=== PATIENT | female | born 1950 | race Caucasian/White ===

== ENCOUNTER 2017-01-23 12:00 | Outpatient (CLI) | payer BC ==
[2017-01-23] MEDS ORDERED: ROCURONIUM 100 MG/10 ML VIAL ONE (13:06)
[2017-01-23] MEDS ORDERED: SUCCINYLCHOLINE CHLORIDE 200 MG/10 ML VIAL ONE (13:06)
[2017-01-23] MEDS ORDERED: MIDAZOLAM 2 MG/2 ML VIAL IVP ONE (13:22)
--- NOTE | 2017-01-23 13:24 | PDANEPAE ---
ANE History of Present Illness 66 year okld with back and neck pain ANE Past Medical History - Cardiovascular History Hx Hypertension: Yes Hx Arrhythmias: Yes Hx Chest Pain: No Hx Coronary Artery / Peripheral Vascular Disease: Yes Hx CHF / Valvular Disease: No Hx Palpitations: Yes Cardiovascular History Comment: 'irregular heartbeat with PVCs' - Pulmonary History Hx COPD: No Hx Asthma/Reactive Airway Disease: No Hx Recent Upper Respiratory Infection: No Hx Oxygen in Use at Home: Yes O2 in Use at Home (L/minute): 3L Hx Sleep Apnea: Yes Sleep Apnea Screening Result - Last Documented: Positive Pulmonary History Comment: Too claustrophbic for CPAP mask. Pt uses nasal canula at night. - Neurologic History Hx Cerebrovascular Accident: No Hx Seizures: No Hx Dementia: No - Endocrine History Hx Diabetes: No - Renal History Hx Renal Disorders: No - Liver History Hx Hepatic Disorders: No - Neurological & Psychiatric Hx Hx Neurological and Psychiatric Disorders: No - Cancer History Hx Cancer: No - Congenital Disorder History Hx Congenital Disorders: Yes Congenital History Comment: Spinal Issues - GI History Hx Gastrointestinal Disorders: Yes Gastrointestinal History Comment: GERD Hiatal Hernia - Other Health History Other Health History: Easily Bruises - Chronic Pain History Chronic Pain: No - Surgical History Prior Surgeries: tonsillectomy, C-sections 3, Hysterectomy, meniscus Surgery,. tubal ligation reversal ANE Review of Systems Review of systems is: negative Review of Systems: - Exercise capacity METS (RN): 4 METS ANE Patient History - Allergies Allergies/Adverse Reactions: No Allergies [NKA] Allergy (Verified 01/21/17 17:39) - Home Medications Home Medications: LISINOPRIL 10 mg PO DAILY 11/20/09 [Last Taken Unknown] SIMVASTATIN 20 mg PO DAILY 11/20/09 [Last Taken Unknown] Aspirin 81mg (*) 81 mg PO DAILY 01/21/17 [Last Taken Unknown] HCTZ (*) 12.5 mg PO DAILY 01/21/17 [Last Taken Unknown] Herbals/Supplements -Info Only PO DAILY 01/21/17 [Last Taken Unknown] Lamotrigine 100 mg PO DAILY 01/21/17 [Last Taken Unknown] Lunesta 3 mg PO DAILY 01/21/17 [Last Taken Unknown] Luvox 50 MG (*) 50 mg PO DAILY 01/21/17 [Last Taken Unknown] Metoprolol Tartrate 25 mg PO DAILY 01/21/17 [Last Taken Unknown] Multivitamin 1 tab PO DAILY 01/21/17 [Last Taken Unknown] Probiotic PO DAILY 01/21/17 [Last Taken Unknown] - Smoking Hx Smoking Status: Never smoked - Family Anes Hx Family Hx Anesthesia Complications: no ANE Labs/Vital Signs - Vital Signs Blood Pressure: 135/98 Heart Rate: 58 Respiratory Rate: 16 O2 Sat (%): 98 Height: 167.64 cm Weight: 81.647 kg ANE Physical Exam - Airway Neck exam: FROM Mallampati Score: Class 1 Mouth exam: normal dental/mouth exam - Pulmonary Pulmonary: no respiratory distress - Cardiovascular Cardiovascular: regular rate and rhythym - ASA Status ASA Status: II ANE Anesthesia Plan Anesthesia Plan: GA w LMA
[2017-01-23] MEDS ORDERED: PROPOFOL 200 MG/20 ML VIAL ONE (13:33)
[2017-01-23] MEDS ORDERED: fentaNYL 100 MCG/2 ML INJ ONE (13:44)
[2017-01-23] MEDS ORDERED: NALOXONE HCL 0.4 MG/ML INJ IVP PRN (15:17)
[2017-01-23] MEDS ORDERED: PROMETHAZINE HCL 25 MG/ML INJ IVP PRN (15:17)
[2017-01-23] MEDS ORDERED: ONDANSETRON 4 MG/2 ML VIAL IVP PRN (15:17)
[2017-01-23] MEDS ORDERED: DEXAMETHASONE 4 MG/ML VIAL IVP PRN (15:17)
[2017-01-23] MEDS ORDERED: fentaNYL 100 MCG/2 ML INJ IVP PRN (15:17)
--- NOTE | 2017-01-23 15:17 | POSTANESTH ---
Post Anesthetic Evaluation Cardiovascular Status: Normal, Stable Respiratory Status: Normal, Stable Level of Consciousness/Mental Status: Can Participate in Eval, Alert and Oriented Pain Control: Adequate, Prn Tx Ordered Nausea/Vomiting Control: Adequate, Prn Tx Ordered Complications Possibly Related to Anesthesia: None Noted
[2017-01-23 15:35] VITALS: TEMP 97.3
[2017-01-23 15:45] VITALS: RESP 14
[2017-01-23 16:08] VITALS: BP 105/67; PULSE 71; O2SAT 93
[2017-01-23] MEDS ORDERED: RANITIDINE 50 MG/2 ML VIAL ONE (17:00)
[2017-01-23] MEDS ORDERED: ONDANSETRON 4 MG/2 ML VIAL ONE (17:00)
[2017-01-23] MEDS ORDERED: LIDOCAINE 2% JELLY 5 ML TUBE ONE (17:00)
[2017-01-23] MEDS ORDERED: LIDOCAINE 2% 2 ML INJ ONE (17:00)
== END 2017-01-23 16:38 | disposition home or self-care (01) ==
LOC: FIMAGING 12:00
DX: M54.16 Radiculopathy, lumbar region (principal); M50.30 Other cervical disc degeneration, unspecified cervical region
CPT/HCPCS: J0330; J2405; J2704; J2780; J3010

== ENCOUNTER → 2017-01-23 | Outpatient (CLI) | payer BC | LOC: FIMAGING 11:59 | PROC: BR30ZZZ Magnetic Resonance Imaging (MRI) of Cervical Spine (ICD-10-PCS; principal; 2017-01-23) | PROC: BR39ZZZ Magnetic Resonance Imaging (MRI) of Lumbar Spine (ICD-10-PCS; principal; 2017-01-23) | DX: M54.16 Radiculopathy, lumbar region (principal); M43.16 Spondylolisthesis, lumbar region; M48.061 Spinal stenosis, lumbar region without neurogenic claudication; M54.2 Cervicalgia; M54.30 Sciatica, unspecified side; F40.240 Claustrophobia ==

== ENCOUNTER 2017-08-15 05:49 | Inpatient (IN) | payer BC ==
[2017-08-15] MEDS ORDERED: ACETAMINOPHEN 500 MG TAB PO ONE (06:11)
[2017-08-15] MEDS ORDERED: GABAPENTIN 300 MG CAP PO ONE (06:11)
[2017-08-15] MEDS ORDERED: LR 1,000 ML IV ONE (06:11)
[2017-08-15] MEDS ORDERED: morphINE PF 0.2 MG in SYRINGE INTRATHECAL 1 SYR IT ONE (06:11)
[2017-08-15] MEDS ORDERED: LIDOCAINE 1% 2 ML INJ ID PRN (06:11)
[2017-08-15] MEDS ORDERED: ceFAZolin 2 GM/DEXTROSE 100 ML IV ONE (06:11)
--- NOTE | 2017-08-15 06:25 | PDHPUP ---
History & Physical Update H&P update statement: This history and physical update is based on an assessment of the patient which was completed after admission or registration (within 24 hours), but prior to the surgery/procedure. H&P update: H&P reviewed & patient examined, no change in patient's condition since H&P completed (Consents siged and site marked. All questions answered. )
[2017-08-15] MEDS ORDERED: CHLORHEXIDINE GLUC HIBICLENS 118 ML BTL TP ONE (06:54)
[2017-08-15] MEDS ORDERED: THROMBIN (BOVINE) 20,000 UNIT VIAL TP ONE (06:54)
[2017-08-15] MEDS ORDERED: BUPIVACAINE 0.25% 30 ML SDV ONE (06:55)
[2017-08-15] MEDS ORDERED: CITRATE DEXTROSE SOLN 500 ML BAG ONE (06:55)
[2017-08-15] MEDS ORDERED: EPINEPHrine 1 MG/ML INJ ONE (06:55)
[2017-08-15] MEDS ORDERED: BACITRACIN 50,000 UNITS/10 ML SYR IRR ONE (06:55)
--- NOTE | 2017-08-15 07:28 | PDANEPAE ---
ANE Past Medical History - Cardiovascular History Hx Hypertension: Yes Hx Arrhythmias: Yes Hx Chest Pain: No Hx Coronary Artery / Peripheral Vascular Disease: Yes Hx CHF / Valvular Disease: No Hx Palpitations: Yes Cardiovascular History Comment: INTERMITTEN PEDAL EDEMA. PVC'S - Pulmonary History Hx COPD: No Hx Asthma/Reactive Airway Disease: No Hx Recent Upper Respiratory Infection: No Hx Oxygen in Use at Home: Yes O2 in Use at Home (L/minute): 3 Hx Sleep Apnea: Yes Sleep Apnea Screening Result - Last Documented: Positive Pulmonary History Comment: ROSALIA DX . Too claustrophbic for CPAP mask. Pt uses nasal canula at night. - Neurologic History Hx Cerebrovascular Accident: No Hx Seizures: No Hx Dementia: No - Endocrine History Hx Diabetes: No - Renal History Hx Renal Disorders: Yes Renal History Comment: FREQUENT UTI'S - Liver History Hx Hepatic Disorders: No - Neurological & Psychiatric Hx Hx Neurological and Psychiatric Disorders: Yes Neurological / Psychiatric History Comment: PTSD/GOING THROUGH A DIVORCE. 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 EPIDURALS. ARTHRITIS RACHEL FEET. CHRONIC EAR INFECTIONS. Easily Bruises. SLIGHT LT FOOT DROP. RACHEL NEUROPATHY - Chronic Pain History Chronic Pain: Yes (NUMBNESS LT FOOT WITH SOME DROP) - Surgical History Prior Surgeries: HYSTERECTOMY. tonsillectomy,. TUBAL LIGATION REVERSAL. TUBAL LIGATION. RT KNEE SCOPE. APPENDECTOMY. tubal ligation reversal ANE Review of Systems Review of Systems: - Exercise capacity METS (RN): 4 METS ANE Patient History - Allergies Allergies/Adverse Reactions: No Allergies [NKA] Allergy (Verified 08/15/17 07:09) - Home Medications Home Medications: Lisinopril [Zestril 10 mg (*)] 10 mg PO DAILY 11/20/09 [Last Taken 08/14/17 06: 00] Simvastatin [Zocor] 20 mg PO HS 11/20/09 [Last Taken 08/14/17 21:00] Aspirin [Aspirin 81mg (*)] 81 mg PO HS 01/21/17 [Last Taken 08/08/17] Eszopiclone [Lunesta] 3 mg PO HS 01/21/17 [Last Taken 08/13/17] Herbals/Supplements -Info Only 1 ea PO DAILY 01/21/17 [Last Taken 08/08/17] Hydrochlorothiazide [HCTZ (*)] 12.5 mg PO DAILY 01/21/17 [Last Taken 08/14/17 06 :00] Metoprolol Succinate Xr [Toprol Xl 25 mg (*)] 25 mg PO DAILY 01/21/17 [Last Taken 08/15/17 05:00] Multivitamins [Multivitamin (*)] 1 each PO DAILY 01/21/17 [Last Taken 08/08/17] ALPRAZolam [Xanax 1 MG (*)] 1 mg PO DAILY PRN 07/19/17 [Last Taken 08/14/17 23: 00] Ascorbic Acid [Vitamin C 500 mg (*)] 500 mg PO DAILY 07/19/17 [Last Taken ] [place]-3 Fatty Acids [Fish Oil 1000 mg (*)] 1,000 mg PO DAILY 07/19/17 [Last Taken 08/08/17] Omeprazole 40 mg PO DAILY 07/19/17 [Last Taken 08/14/17 05:00] Sertraline HCl [Zoloft 100mg (*)] 200 mg PO DAILY 07/19/17 [Last Taken 08/15/17 05:00] - NPO status NPO Since - Liquids (Date): 08/15/17 NPO Since - Liquids (Time): 05:00 NPO Since - Solids (Date): 08/14/17 NPO Since - Solids (Time): 22:00 - Smoking Hx Smoking Status: Never smoked - Family Anes Hx Family Hx Anesthesia Complications: no ANE Labs/Vital Signs - Vital Signs Blood Pressure: 125/82 Heart Rate: 67 Respiratory Rate: 18 O2 Sat (%): 96 Height: 167.64 cm Weight: 83.461 kg ANE Physical Exam - Airway Neck exam: FROM Mallampati Score: Class 3 Mouth exam: normal dental/mouth exam, small mouth opening - Pulmonary Pulmonary: no respiratory distress - Cardiovascular Cardiovascular: regular rate and rhythym - ASA Status ASA Status: III ANE Anesthesia Plan Anesthesia Plan: general endotracheal anesthesia
[2017-08-15] MEDS ORDERED: PROPOFOL/EMULSION 500 MG/50 ML BOTTLE IV ONE (07:36)
[2017-08-15] MEDS ORDERED: MIDAZOLAM 2 MG/2 ML VIAL ONE ×2 (07:36→11:32)
[2017-08-15] MEDS ORDERED: DEXAMETHASONE 4 MG/ML VIAL ONE ×2 (07:39)
[2017-08-15] MEDS ORDERED: LACTULOSE 20 GM/30 ML UDCUP PO PRN (10:18)
[2017-08-15] MEDS ORDERED: diphenhydrAMINE 25 MG CAP PO PRN (10:18)
[2017-08-15] MEDS ORDERED: ONDANSETRON DISINTEGRATING 4 MG TAB PO PRN (10:18)
[2017-08-15] MEDS ORDERED: ONDANSETRON 4 MG/2 ML VIAL IVP PRN ×2 (10:18→10:25)
[2017-08-15] MEDS ORDERED: BISACODYL 10 MG SUPP PR PRN (10:18)
[2017-08-15] MEDS ORDERED: MAGNESIUM HYDROXIDE 30 ML UDCUP PO PRN (10:18)
[2017-08-15] MEDS ORDERED: NALOXONE HCL 0.4 MG/ML INJ IVP PRN ×2 (10:25)
[2017-08-15] MEDS ORDERED: ALBUTEROL 3 ML DEYVIAL IH PRN (10:25)
--- NOTE | 2017-08-15 10:27 | POSTANESTH ---
Post Anesthetic Evaluation Cardiovascular Status: Similar to Pre-Op Cond Respiratory Status: Similar to Pre-op Cond. Level of Consciousness/Mental Status: Mildly Sleepy, Arousable Pain Control: Adequate, Prn Tx Ordered Nausea/Vomiting Control: Adequate, Prn Tx Ordered Complications Possibly Related to Anesthesia: None Noted
[2017-08-15] MEDS ORDERED: fentaNYL 100 MCG/2 ML INJ ONE (10:39)
[2017-08-15] MEDS: fentaNYL 100 MCG/2 ML INJ IVP PRN ×2 (10:40→11:20)
--- NOTE | 2017-08-15 10:54 | POSTOPPROG ---
Post Op Note Date of Operation: 08/15/17 Surgeon: Atif Quintanilla City Letter Carrier: CHARLIE Trujillo PAC Anesthesia: GET(General Endotracheal) Pre-op Diagnosis: lumbar stenosis Post-op Diagnosis: lumbar stenosis Indication: lumbar stenosis Procedure: L4/5 laminectomy,TLIF& PSF Inf/Abcess present in the surg proc area at time of surgery?: No Depth: Superfical (Skin SQ) EBL: 150cc Drains: Donald BILL Addendum - Addendum .: S:low back pain O: NAD A&Ox3 MAEX4, 5/5 and equal in BUE AND BLE. A/P L4/5 laminectomy,TLIF& PSF -optimize pain management -PT/OT -Post op xrays pending -JPx1 -DVT prophx:TEDs, SCDs, lovenox POD1 -Please notify NS with any change in neuro/motor exam
--- NOTE | 2017-08-15 11:32 | GOP ---
[f rep st] OPERATIVE REPORT DATE OF OPERATION: 08/15/2017 SURGEON: Atif Quintanilla MD BOARDING HOUSE MANAGER: Elif Trujillo P.A.-C. ANESTHESIA: General. PREOPERATIVE DIAGNOSIS: 1. L4-5 grade 1 spondylolisthesis with severe spinal stenosis. 2. Progressive neurological deficit. 3. Treatment refractory to nonoperative intervention. POSTOPERATIVE DIAGNOSIS: 1. L4-5 grade 1 spondylolisthesis with severe spinal stenosis. 2. Progressive neurological deficit. 3. Treatment refractory to nonoperative intervention. PROCEDURE PERFORMED: 1. Posterior arthrodesis with approach to L4-L5. 2. Posterolateral fusion with bilateral pedicle screw placement, L4 and L5 from the [employer] 4.75 system. 3. Decompressive laminectomy L4-L5 with left-sided L4-L5 transforaminal lumbar interbody fusion using a 7 x 23 mm Titanium PEEK elevate cage filled with morselized autograft and allograft. 4. Posterolateral fusion on the right between L4-5 with morselized autograft and allograft. 5. Use of intraoperative 3D Stealth Navigation. 6. Use of intraoperative fluoroscopy, less than 1-hour physician time. 7. Use of neuromonitoring. 8. Use of the operating microscope. 9. Injection of preservative-free intrathecal narcotics. FINDINGS: per imaging SPECIMENS: None. ESTIMATED BLOOD LOSS: 100 mL. INDICATIONS: The patient is a 66-year-old woman who has been followed in my clinic for a long time for lower extremity radiculopathy and back pain. She developed progressive neurological deficit including saddle anesthesia. After discussion of risks, benefits, and alternatives, after failing nonoperative intervention, we decided to proceed with the surgery as described above. DESCRIPTION OF PROCEDURE: The patient was brought to the operating theater and underwent general endotracheal anesthesia without complications. She had Venodynes, GIANCARLO hose, and the appropriate lines placed by Anesthesia. She was flipped prone onto the Donald table and all bony processes inspected and padded. The lower lumbar region was prepped and draped in usual sterile surgical fashion. A time-out was completed per protocol and the patient received antibiotics within 1 hour of incision. Using lateral fluoroscopy and a spinal needle, we picked our entry point to the L4-L5 level. This was marked in the midline, and the incision infiltrated with Marcaine with epinephrine. The incision was taken down with the scalp blade and using the monopolar, taken down the midline through the lumbodorsal fascia. A subperiosteal dissection was carried out to the transverse processes of L4 and L5. Care was taken to preserve the bilateral L3-4 facet joint. Deep retractors were placed to maintain our exposure. We confirmed our level using lateral fluoroscopy. We attached the 3D Stealth navigation clamp to the spinous process of L4 and completed a 3D Stealth navigation spin. Using 3D Stealth navigation we placed the commuter pilot holes for the bilateral pedicle screws at L4 and L5. All holes were manually palpated with no evidence of cortical breaches. We then tapped and placed 6.5 x 50 mm screws bilaterally in L4 and 6.5 x 45 mm screws bilaterally at L5 [employer] 4.75 system. Another 3D navigation spin demonstrated good placement of the hardware. At this point the microscope was brought into the field to assist with microscopic dissection and to maintain illumination and magnification. Using a combination of te bur tip on the drill bit, Kerrison punches and Leksell rongeur , we completed a decompressive laminectomy with bilateral medial facetectomies, L4-L5. We completed an aggressive facetectomy on the left side between L4-5 and completed a left-sided L4-5 diskectomy. We prepared the cartilaginous endplates and measured interbody space. We placed a 7 x 23 mm titanium PEEK elevate cage filled with morselized autograft and allograft anteriorly and toward the midline. We packed additional morcellized autograft in the disk space for the interbody fusion. We let down the distraction and decorticated the bone on the right side between L4-5. We placed 2 lordotic rods into the heads of the screws between L4-5 and secured them down with cap screws which were then tightened per the computer project manager's setting. We injected preservative-free intrathecal narcotics. We placed morselized autograft and allograft on the right side between L4-5 for the posterolateral fusion. A drain was left in the subfascial space and the wound then closed in multiple layers using Vicryl sutures for the deep layers and Dermabond for the skin. The patient was flipped supine onto the transfer cart. She was awakened , extubated, taken to the recovery room in stable condition. There were no complications and improvement in her neuro-monitoring at the end the procedure. COMPLICATIONS: None. /[id number]/MODL MTDD
[2017-08-15] MEDS ORDERED: MIDAZOLAM 2 MG/2 ML VIAL IVP PRN (11:35)
[2017-08-15] MEDS: ACETAMINOPHEN 500 MG TAB PO SCH ×2 (13:12→22:06)
[2017-08-15] MEDS: ALPRAZolam 1 MG TAB PO PRN (13:12)
[2017-08-15] MEDS: METHOCARBAMOL 750 MG TAB PO PRN ×2 (13:12→19:46)
[2017-08-15] MEDS: ceFAZolin 2 GM/DEXTROSE 100 ML IV SCH ×2 (13:13→22:06)
[2017-08-15] MEDS: NS 1,000 ML IV SCH ×2 (13:13→17:49)
--- NOTE | 2017-08-15 14:13 | PDMN ---
Medical Necessity Medical necessity: [place] only [place] 86248[place] [facility] [place] (L4/5 laminectomy, TLIF & PSF)
[2017-08-15] MEDS ORDERED: NS 500 ML IV ONE (16:00)
[2017-08-15] MEDS: oxyCODONE IR 5 MG TAB PO PRN (19:46)
[2017-08-15] MEDS: ATORVASTATIN CALCIUM 10 MG TAB PO SCH (19:46)
[2017-08-15] MEDS: SENNOSIDES/DOCUSATE SODIUM TAB PO SCH (19:46)
[2017-08-15] MEDS: FAMOTIDINE 20 MG TAB PO SCH (19:47)
[2017-08-16] MEDS: oxyCODONE IR 5 MG TAB PO PRN ×4 (04:14→20:34)
[2017-08-16] MEDS: ACETAMINOPHEN 500 MG TAB PO SCH ×3 (05:14→22:23)
[2017-08-16] MEDS: METHOCARBAMOL 500 MG TAB PO PRN ×4 (05:37→23:47)
[2017-08-16] MEDS: SENNOSIDES/DOCUSATE SODIUM TAB PO SCH ×2 (09:46→20:34)
[2017-08-16] MEDS: HYDROCHLOROTHIAZIDE 12.5 MG CAP PO SCH (09:46)
[2017-08-16] MEDS: SERTRALINE HCL 100 MG TAB PO SCH (09:46)
[2017-08-16] MEDS: ASCORBIC ACID 500 MG TAB PO SCH (09:46)
[2017-08-16] MEDS: PANTOPRAZOLE SODIUM 40 MG TAB PO SCH (09:47)
[2017-08-16] MEDS: MULTIVITAMINS 1 EACH TAB PO SCH (09:47)
[2017-08-16] MEDS: FAMOTIDINE 20 MG TAB PO SCH ×2 (09:47→20:34)
[2017-08-16] MEDS: LISINOPRIL 10 MG TAB PO SCH (09:49)
[2017-08-16] MEDS: METOPROLOL SUCCINATE XR 25 MG TAB PO SCH (09:49)
[2017-08-16] MEDS: ENOXAPARIN 40 MG/0.4 ML SYR SC SCH (11:19)
--- NOTE | 2017-08-16 11:51 | NEUSURGPN ---
Assessment/Plan: A/P L4/5 laminectomy,TLIF& PSF POD1 -optimize pain management -PT/OT -Post op xrays demonstrate intact hardware -JPx1, continue today -DVT prophx:TEDs, SCDs, lovenox -Please notify NS with any change in neuro/motor exam Seen today by Dr. Quintanilla and myself Subjective: low back pain, denies any new leg pain Objective: NAD A&Ox3 MAEX4, 5/5 and equal in BUE and BLE. Incision c/d/i Catheter Insertion Date: 08/15/17 - Physician Patient Seen by : [facility] Physical Exam - Vitals, I&O, Labs I and O 08/15/17 08/16/17 08/17/17 05:59 05:59 05:59 Intake Total 6190 850 Output Total 3590 390 Balance 2600 460 Weight 83.46 kg Intake: Oral (ml) 2150 850 IV Intake (ml) 3040 IV Infused (ml) 1000 Ns 1,000 ml @ 75 mls/hr 300 IV CONT [facility] Rx#: [id number] Ns 500 ml @ As Directed 500 IV ONCE ONE Rx#: [id number] ceFAZolin 2 GM/DEXTROSE 200 100 ml @ 200 mls/hr IV Q8HRS [facility] Rx#:[id number] Output: Urine (ml) 3250 350 Catheter 3250 Toilet 350 Estimated Blood Loss (ml) 100 GABRIEL Drain Output (ml) 240 40 Right Back Donald Rankin 240 40 Other: Number of Voids Catheter 1 Toilet 1 Vital Signs Temp Pulse Resp BP Pulse Ox 36.5 C 58 L 14 96/56 L 99 08/16/17 08:00 08/16/17 08:00 08/16/17 08:00 08/16/17 08:00 08/16/17 08:00 ICD10 Worksheet Patient Problems: Problems Problem Status Onset Spinal stenosis of lumbar region with radiculopathy Acute
--- NOTE | 2017-08-16 15:39 | ASMTCMCOM ---
CM Note CM Note Notes: Pt s/p L4/5 lami, TLIF and PSF. OT/PT rec SNF. Pt chooses [facility]F. [facility] and [facility] has sent for insurance authorization. Insurance auth may not be obtained until Saturday ot later. D/c plan of care: [facility] when medically stable and SNF has insurance authorization Date Signed: 08/16/2017 03:38 PM Electronically Signed By:ROSALIE Salazar
[2017-08-16] MEDS: ALPRAZolam 1 MG TAB PO PRN (18:43)
[2017-08-16] MEDS: POLYETHYLENE GLYCOL 3350 17 GM PKT PO PRN (20:34)
[2017-08-16] MEDS: ATORVASTATIN CALCIUM 10 MG TAB PO SCH (20:34)
[2017-08-17] MEDS: oxyCODONE IR 5 MG TAB PO PRN ×4 (00:30→20:54)
[2017-08-17] MEDS: METHOCARBAMOL 500 MG TAB PO PRN ×2 (06:15→13:34)
[2017-08-17] MEDS: ACETAMINOPHEN 500 MG TAB PO SCH ×3 (06:15→22:44)
[2017-08-17] MEDS: POLYETHYLENE GLYCOL 3350 17 GM PKT PO PRN (09:13)
[2017-08-17] MEDS: HYDROCHLOROTHIAZIDE 12.5 MG CAP PO SCH (09:13)
[2017-08-17] MEDS: ENOXAPARIN 40 MG/0.4 ML SYR SC SCH (09:13)
[2017-08-17] MEDS: SENNOSIDES/DOCUSATE SODIUM TAB PO SCH ×2 (09:13→20:55)
[2017-08-17] MEDS: SERTRALINE HCL 100 MG TAB PO SCH (09:13)
[2017-08-17] MEDS: MULTIVITAMINS 1 EACH TAB PO SCH (09:14)
[2017-08-17] MEDS: LISINOPRIL 10 MG TAB PO SCH (09:14)
[2017-08-17] MEDS: ASCORBIC ACID 500 MG TAB PO SCH (09:14)
[2017-08-17] MEDS: guaiFENesin 600 MG TAB.ER PO PRN ×2 (09:14→20:54)
[2017-08-17] MEDS: FAMOTIDINE 20 MG TAB PO SCH ×2 (09:14→20:54)
[2017-08-17] MEDS: PANTOPRAZOLE SODIUM 40 MG TAB PO SCH (09:14)
[2017-08-17] MEDS: METOPROLOL SUCCINATE XR 25 MG TAB PO SCH (09:15)
[2017-08-17] MEDS: morphINE SR 15 MG TAB PO SCH ×2 (10:21→20:54)
--- NOTE | 2017-08-17 12:47 | NEUSURGPN ---
Assessment/Plan: Assessment/Plan: A/P L4/5 laminectomy,TLIF& PSF POD2 -optimize pain management- Added MS Contin and will try 2.5-5mg Valium for spasms as robaxin not helping and unable to sleep and anxiety also an issue. MS Contin to be held if patient too somnolent. -PT/OT -Post op xrays demonstrate intact hardware -JPx1, remove today -DVT prophx:TEDs, SCDs, lovenox -Encourage OOB at least 3 times perday -Please notify NS with any change in neuro/motor exam -Discussed with Dr. Quintanilla Subjective: Did not sleep well. Has a lot of complaints about anxiety and pain control. Has some leg pain mostly muscular not nerve pain. Objective: NAD A&Ox3 MAEX4, 5/5 and equal in BUE and BLE. Incision c/d/i GABRIEL X 1- serosang Catheter Insertion Date: 08/15/17 - Physician Discussed Patient with Dr.: Quintanilla Neurosurgery Physical Exam - Vitals, I&O, Labs I and O 08/16/17 08/17/17 08/18/17 05:59 05:59 05:59 Intake Total 6190 1250 Output Total 3590 3445 730 Balance 2600 -2195 -730 Weight 83.46 kg Intake: Oral (ml) 2150 1250 IV Intake (ml) 3040 IV Infused (ml) 1000 Ns 1,000 ml @ 75 mls/hr 300 IV CONT [facility] Rx#: [id number] Ns 500 ml @ As Directed 500 IV ONCE ONE Rx#: [id number] ceFAZolin 2 GM/DEXTROSE 200 100 ml @ 200 mls/hr IV Q8HRS [facility] Rx#:[id number] Output: Urine (ml) 3250 3300 700 Catheter 3250 Toilet 3300 700 Estimated Blood Loss (ml) 100 GABRIEL Drain Output (ml) 240 145 30 Right Back Donald Rankin 240 145 30 Other: Intake Quantity Yes Sufficient Number of Voids Catheter 1 Toilet 1 1 Vital Signs Temp Pulse Resp BP Pulse Ox 36.7 C 68 14 97/45 L 98 08/17/17 07:45 08/17/17 09:15 08/17/17 07:45 08/17/17 09:15 08/17/17 07:45 ICD10 Worksheet Patient Problems: Problems Problem Status Onset Spinal stenosis of lumbar region with radiculopathy Acute - ICD10 Problem Qualifiers (1) Spinal stenosis of lumbar region with radiculopathy
[2017-08-17] MEDS: DIAZEPAM 5 MG TAB PO PRN (20:53)
[2017-08-17] MEDS: ATORVASTATIN CALCIUM 10 MG TAB PO SCH (20:54)
[2017-08-18] MEDS: ACETAMINOPHEN 500 MG TAB PO SCH ×3 (05:35→22:51)
--- NOTE | 2017-08-18 08:08 | NEUSURGPN ---
Assessment/Plan: Assessment/Plan: A/P L4/5 laminectomy,TLIF& PSF POD3 -Overall doing well, has some lateral thigh pain and groin pain that is new since last night- most likely due to spasms and/or positioning and inflammation , should get better -optimize pain management- Added MS Contin and will try 2.5-5mg Valium for spasms as robaxin not helping and unable to sleep and anxiety also an issue. MS Contin to be held if patient too somnolent. -PT/OT -Post op xrays demonstrate intact hardware -GABRIEL removed -DVT prophx:TEDs, SCDs, lovenox -Encourage OOB at least 3 times perday -Please notify NS with any change in neuro/motor exam -Discussed with Dr. Quintanilla Subjective: Patient slept better last night. Pain better controlled this morning. Having some left lateral thigh and jo pain that is new from last night. No weakness. Objective: NAD A&Ox3 MAEX4, 5/5 and equal in BUE and BLE. Incision c/d/i Catheter Insertion Date: 08/15/17 - Physician Discussed Patient with : [facility] Physical Exam - Vitals, I&O, Labs I and O 08/17/17 08/18/17 08/19/17 05:59 05:59 05:59 Intake Total 1250 900 Output Total 3445 1700 Balance -2195 -800 Intake: Oral (ml) 1250 900 Output: Urine (ml) 3300 1650 Toilet 3300 1650 GABRIEL Drain Output (ml) 145 50 Right Back Donald Rankin 145 50 Other: Intake Quantity Yes Yes Sufficient Number of Voids Toilet 1 3 Vital Signs Temp Pulse Resp BP Pulse Ox 36.6 C 62 16 102/61 98 08/18/17 07:35 08/18/17 07:35 08/18/17 07:35 08/18/17 07:35 08/18/17 07:35 ICD10 Worksheet Patient Problems: Problems Problem Status Onset Spinal stenosis of lumbar region with radiculopathy Acute - ICD10 Problem Qualifiers (1) Spinal stenosis of lumbar region with radiculopathy
[2017-08-18] MEDS: METHOCARBAMOL 500 MG TAB PO PRN ×2 (08:21→17:10)
[2017-08-18] MEDS: ENOXAPARIN 40 MG/0.4 ML SYR SC SCH (08:21)
[2017-08-18] MEDS: morphINE SR 15 MG TAB PO SCH ×2 (08:22→21:05)
[2017-08-18] MEDS: HYDROCHLOROTHIAZIDE 12.5 MG CAP PO SCH (08:22)
[2017-08-18] MEDS: SERTRALINE HCL 100 MG TAB PO SCH (08:22)
[2017-08-18] MEDS: FAMOTIDINE 20 MG TAB PO SCH ×2 (08:22→21:07)
[2017-08-18] MEDS: ASCORBIC ACID 500 MG TAB PO SCH (08:23)
[2017-08-18] MEDS: PANTOPRAZOLE SODIUM 40 MG TAB PO SCH (08:24)
[2017-08-18] MEDS: METOPROLOL SUCCINATE XR 25 MG TAB PO SCH (08:24)
[2017-08-18] MEDS: MULTIVITAMINS 1 EACH TAB PO SCH (08:24)
[2017-08-18] MEDS: LISINOPRIL 10 MG TAB PO SCH (08:25)
[2017-08-18] MEDS: SENNOSIDES/DOCUSATE SODIUM TAB PO SCH ×2 (08:25→21:06)
[2017-08-18] MEDS: oxyCODONE IR 5 MG TAB PO PRN ×2 (11:55→19:38)
--- NOTE | 2017-08-18 13:58 | ASMTCMCOM ---
CM Note CM Note Notes: Chart reviewed. Updates to [facility]. Likely dc to [facility] tomorrow after authorization obtained. CM to follow. Plan: To [facility] Date Signed: 08/18/2017 01:58 PM Electronically Signed By:Kelsea Villatoro RN
[2017-08-18] MEDS: ATORVASTATIN CALCIUM 10 MG TAB PO SCH (21:05)
[2017-08-18] MEDS: DIAZEPAM 5 MG TAB PO PRN (21:06)
[2017-08-19] MEDS: METHOCARBAMOL 500 MG TAB PO PRN (00:12)
[2017-08-19] MEDS: ACETAMINOPHEN 500 MG TAB PO SCH ×3 (05:49→22:03)
[2017-08-19] MEDS: oxyCODONE IR 5 MG TAB PO PRN ×2 (05:50→15:30)
--- NOTE | 2017-08-19 08:18 | NEUSURGPN ---
Assessment/Plan: Assessment/Plan: A/P L4/5 laminectomy,TLIF& PSF POD4 -Overall doing well, has some lateral thigh pain and groin pain that is new since last night- most likely due to spasms and/or positioning and inflammation , should get better -optimize pain management- Doing well on current regimen -PT/OT -Post op xrays demonstrate intact hardware -DVT prophx:TEDs, SCDs, lovenox -Encourage OOB at least 3 times perday -Please notify NS with any change in neuro/motor exam -Discussed with Dr. Quintanilla Subjective: Patient is sitting in chair, doing well this morning. States she slept well. Eager to go to rehab today. Leg pain improved, has intermittent foot numbness. Objective: NAD A&Ox3 MAEX4, 5/5 and equal in BUE and BLE. Incision c/d/i Catheter Insertion Date: 08/15/17 - Physician Discussed Patient with Dr.: Quintanilla Neurosurgery Physical Exam - Vitals, I&O, Labs I and O 08/18/17 08/19/17 08/20/17 05:59 05:59 05:59 Intake Total 900 800 Output Total 1700 Balance -800 800 Intake: Oral (ml) 900 800 Output: Urine (ml) 1650 Toilet 1650 GABRIEL Drain Output (ml) 50 Right Back Donald Rankin 50 Other: Intake Quantity Yes Sufficient Number of Voids Toilet 3 2 Number of Emesis 1 Occurrences Vital Signs Temp Pulse Resp BP Pulse Ox 36.7 C 79 16 107/60 97 08/19/17 07:43 08/19/17 07:43 08/19/17 07:43 08/19/17 07:43 08/19/17 07:43 ICD10 Worksheet Patient Problems: Problems Problem Status Onset Spinal stenosis of lumbar region with radiculopathy Acute - ICD10 Problem Qualifiers (1) Spinal stenosis of lumbar region with radiculopathy
--- NOTE | 2017-08-19 08:43 | PDIAF ---
- Diagnosis Code Status: Full Code - Medication Management Discharge Medications: Medications to Continue on Transfer Lisinopril [Zestril 10 mg (*)] 10 mg PO DAILY 11/20/09 [Last Taken 08/14/17 06: 00] Simvastatin [Zocor] 20 mg PO HS 11/20/09 [Last Taken 08/14/17 21:00] Eszopiclone [Lunesta] 3 mg PO HS 01/21/17 [Last Taken 08/13/17] Hydrochlorothiazide [HCTZ (*)] 12.5 mg PO DAILY 01/21/17 [Last Taken 08/14/17 06 :00] Metoprolol Succinate Xr [Toprol Xl 25 mg (*)] 25 mg PO DAILY 01/21/17 [Last Taken 08/15/17 05:00] Multivitamins [Multivitamin (*)] 1 each PO DAILY 01/21/17 [Last Taken 08/08/17] Ascorbic Acid [Vitamin C 500 mg (*)] 500 mg PO DAILY 07/19/17 [Last Taken ] [place]-3 Fatty Acids [Fish Oil 1000 mg (*)] 1,000 mg PO DAILY 07/19/17 [Last Taken 08/08/17] Omeprazole 40 mg PO DAILY 07/19/17 [Last Taken 08/14/17 05:00] Sertraline HCl [Zoloft 100mg (*)] 200 mg PO DAILY 07/19/17 [Last Taken 08/15/17 05:00] Acetaminophen [Tylenol ES 500 mg (*)] 1,000 mg PO Q8HRS tab 08/19/17 [Last Taken Unknown] Diazepam [Valium 5 MG (*)] 2.5 - 5 mg PO Q6HRS PRN tab 08/19/17 [Last Taken Unknown] Enoxaparin [Lovenox 40 MG (*)] 40 mg SC DAILY syr 08/19/17 [Last Taken Unknown] Methocarbamol [Robaxin 500 mg (*)] 750 mg PO QID PRN tab 08/19/17 [Last Taken Unknown] Ondansetron Odt [Zofran Odt 4 mg (*)] 4 - 8 mg PO Q6HRS PRN tab 08/19/17 [Last Taken Unknown] Polyethylene Glycol 3350 [Miralax 17 gm (*)] 17 gm PO DAILY PRN pkt 08/19/17 [ Last Taken Unknown] Sennosides/Docusate Sodium [Senokot-S] 1 - 2 tab PO BID tab 08/19/17 [Last Taken Unknown] guaiFENesin [Mucinex 600 MG (*)] 600 mg PO BID PRN tab.er 08/19/17 [Last Taken Unknown] morphINE SR [Ms Contin/Oramorph 15 mg (*)] 15 mg PO BID tab 08/19/17 [Last Taken Unknown] oxyCODONE IR [Oxycodone Ir (*)] 5 - 10 mg PO Q4HRS PRN tab 08/19/17 [Last Taken Unknown] Additional Medication Instructions: Lovenox for next 3-5 days or until deemed by rehab doctor that she is ambulatory enough to stop Discharge Medications: Refer to the Discharge Home Medication list for PRN reason. - Orders Services needed: Registered Nurse, Physical Therapy, Occupational Therapy Diet Recommendation: no restrictions on diet Diet Texture: Regular Texture Diet Activity/Weight Bearing Restrictions: see additional instructions Additional Instructions: No NSAID's for 6 months Follow up with Dr. Quintanilla in 2-3 weeks Wear your brace when you are up and out of bed May shower, let warm soapy water wash over incision, pat dry with towel leave clean and dry No bending, lifting, twisting more than 5-10 pounds Call [facility] at [phone] with any questions or concerns - Follow Up Care Current Providers and Referrals: EFREN BERGERON [Primary Care Provider] - Atif Quintanilla MD [Medical Doctor] - follow up in 2 weeks
[2017-08-19] MEDS: ENOXAPARIN 40 MG/0.4 ML SYR SC SCH (08:47)
[2017-08-19] MEDS: SENNOSIDES/DOCUSATE SODIUM TAB PO SCH ×2 (08:48→20:34)
[2017-08-19] MEDS: morphINE SR 15 MG TAB PO SCH ×2 (08:49→20:35)
[2017-08-19] MEDS: FAMOTIDINE 20 MG TAB PO SCH ×2 (08:49→20:35)
[2017-08-19] MEDS: MULTIVITAMINS 1 EACH TAB PO SCH (08:50)
[2017-08-19] MEDS: SERTRALINE HCL 100 MG TAB PO SCH (08:50)
[2017-08-19] MEDS: PANTOPRAZOLE SODIUM 40 MG TAB PO SCH (08:50)
[2017-08-19] MEDS: HYDROCHLOROTHIAZIDE 12.5 MG CAP PO SCH (08:50)
[2017-08-19] MEDS: ASCORBIC ACID 500 MG TAB PO SCH (08:51)
[2017-08-19] MEDS: LISINOPRIL 10 MG TAB PO SCH (10:24)
[2017-08-19] MEDS: METOPROLOL SUCCINATE XR 25 MG TAB PO SCH (10:25)
--- NOTE | 2017-08-19 17:25 | ASMTCMCOM ---
CM Note CM Note Notes: DC plan to [facility], still waiting for insurance auth. Updates sent earlier today and discussed w/Archana at [facility]. Date Signed: 08/19/2017 05:24 PM Electronically Signed By:Izzy Ulloa RN
[2017-08-19] MEDS: ATORVASTATIN CALCIUM 10 MG TAB PO SCH (20:35)
[2017-08-19] MEDS: DIAZEPAM 5 MG TAB PO PRN (20:39)
[2017-08-20] MEDS: ACETAMINOPHEN 500 MG TAB PO SCH ×2 (06:02→16:28)
[2017-08-20] MEDS: METHOCARBAMOL 500 MG TAB PO PRN ×3 (06:04→16:33)
--- NOTE | 2017-08-20 06:22 | NEUSURGPN ---
Assessment/Plan: A/P L4/5 laminectomy,TLIF& PSF POD5 -optimize pain management- Doing well on current regimen -PT/OT -Post op xrays demonstrate intact hardware -DVT prophx:TEDs, SCDs, lovenox -Encourage OOB at least 3 times perday -Please notify NS with any change in neuro/motor exam -Discussed with Dr. Quintanilla -Dispo planning to SNF today Subjective: Pain tolerable, denies nay new leg pain or weakness Objective: NAD A&Ox3 MAEX4, 5/5 and equal in BUE and BLE. Incision c/d/i Catheter Insertion Date: 08/15/17 - Physician Discussed Patient with Dr.: Quintanilla Neurosurgery Physical Exam - Vitals, I&O, Labs I and O 08/19/17 08/20/17 08/21/17 05:59 05:59 05:59 Intake Total 800 1900 350 Balance 800 1900 350 Intake: Oral (ml) 800 1900 350 Other: Intake Quantity Yes Sufficient Number of Voids Toilet 2 1 1 Number of Emesis 1 Occurrences Vital Signs Temp Pulse Resp BP Pulse Ox 36.9 C 75 16 123/75 H 97 08/19/17 22:59 08/19/17 22:59 08/19/17 22:59 08/19/17 22:59 08/19/17 22:59 ICD10 Worksheet Patient Problems: Problems Problem Status Onset Spinal stenosis of lumbar region with radiculopathy Acute
[2017-08-20] MEDS: MULTIVITAMINS 1 EACH TAB PO SCH (07:50)
[2017-08-20] MEDS: ENOXAPARIN 40 MG/0.4 ML SYR SC SCH (07:52)
[2017-08-20] MEDS: POLYETHYLENE GLYCOL 3350 17 GM PKT PO PRN (07:52)
[2017-08-20] MEDS: FAMOTIDINE 20 MG TAB PO SCH (08:45)
[2017-08-20] MEDS: SENNOSIDES/DOCUSATE SODIUM TAB PO SCH (08:45)
[2017-08-20] MEDS: LISINOPRIL 10 MG TAB PO SCH (08:45)
[2017-08-20] MEDS: HYDROCHLOROTHIAZIDE 12.5 MG CAP PO SCH (08:45)
[2017-08-20] MEDS: PANTOPRAZOLE SODIUM 40 MG TAB PO SCH (08:45)
[2017-08-20] MEDS: ASCORBIC ACID 500 MG TAB PO SCH (08:45)
[2017-08-20] MEDS: morphINE SR 15 MG TAB PO SCH (08:45)
[2017-08-20] MEDS: METOPROLOL SUCCINATE XR 25 MG TAB PO SCH (08:45)
[2017-08-20] MEDS: SERTRALINE HCL 100 MG TAB PO SCH (09:07)
[2017-08-20] MEDS: oxyCODONE IR 5 MG TAB PO PRN ×2 (09:07→13:36)
--- NOTE | 2017-08-20 12:18 | ASMTLACE ---
LACE Length of stay for Answers: 4-6 days current admission Acuity / Level of Answers: Yes Care: Did the patient have an inpatient admission? Comorbidities - select Answers: Other Notes: lumbar stenosis all that apply # of Emergency department Answers: 0 visits in the last 6 months Score: 8 Date Signed: 08/20/2017 12:18 PM Electronically Signed By:ROSALIE Salazar
--- NOTE | 2017-08-20 14:15 | ASMTCMCOM ---
CM Note CM Note Notes: Pt BC insurance has authorized SNF d/c. Pt medically stable for d/c to [facility]. Orders sent in Allscripts. Una with [facility] scheduled van transport for 1630. Date Signed: 08/20/2017 02:14 PM Electronically Signed By:ROSALIE Salazar
[2017-08-20 15:50] VITALS: BP 111/66
[2017-08-20] MEDS ORDERED: METHOCARBAMOL 750 MG TAB ONE (16:31)
--- NOTE | 2017-08-20 16:42 | ASDISCHSUM ---
Discharge Information Plan Status:SNF Medically Cleared to Leave: Discharge Date:08/20/2017 04:40 PM D/C Disposition:[facility] Facility ADT D/C Disposition:Other Rehab, Not [facility] Projected Discharge Date:08/19/2017 11:00 AM Transportation at D/C:Wheelchair Van Discharge Delay Reason: Follow-Up Date:08/19/2017 11:00 AM Discharge Slot: Final Diagnosis: Placement Information Referral Type:*Fci/SNF Referral ID:[id number] Provider Name:[facility] Address 1:[address] Address 2: City:[place] Selection Factors: State:[place] Patient Contact Information Contact Name:CHIARA Relationship: Address:[address] [place] Work Phone: [facility]:[place] Alternate Phone: State/Zip Code:[place] [address] Email: Financial Information Financial Class:HMO and PPO Plans Primary Plan Desc: OUT OF STATE PPO Primary Plan Number:[id number] Secondary Plan Desc: Secondary Plan Number: Assessment Information [facility] CM Progress Note CM Note CM Note Notes: Pt s/p L4/5 lami, TLIF and PSF. OT/PT rec SNF. Pt chooses [facility]. Referral sent in [facility] and [facility] has sent for insurance authorization. Insurance auth may not be obtained until Saturday ot later. D/c plan of care: [facility] SNF when medically stable and SNF has insurance authorization Date Signed: 08/16/2017 03:38 PM Electronically Signed By:ROSALIE Salazar LACE LACE Length of stay for Answers: 4-6 days current admission Acuity / Level of Answers: Yes Care: Did the patient have an inpatient admission? Comorbidities - select Answers: Other Notes: lumbar stenosis all that apply # of Emergency department Answers: 0 visits in the last 6 months Score: 8 Date Signed: 08/20/2017 12:18 PM Electronically Signed By:ROSALIE Salazar [facility] CM Progress Note CM Note CM Note Notes: Chart reviewed. Updates to [facility]. Likely dc to [facility] tomorrow after authorization obtained. CM to follow. Plan: To [facility] Date Signed: 08/18/2017 01:58 PM Electronically Signed By:Kelsea Villatoro RN [facility] CM Progress Note CM Note CM Note Notes: DC plan to [facility], still waiting for insurance auth. Updates sent earlier today and discussed w/Archana at [facility]. Date Signed: 08/19/2017 05:24 PM Electronically Signed By:Izzy Ulloa RN [facility] CM Progress Note CM Note CM Note Notes: Pt BC insurance has authorized SNF d/c. Pt medically stable for d/c to [facility]. Orders sent in Allscripts. Una with [facility] scheduled wc van transport for 1629. Date Signed: 08/20/2017 02:14 PM Electronically Signed By:ROSALIE Salazar Intervention Information
== END 2017-08-20 16:40 | DRG 460 ==
LOC: F3N 05:49
PROVIDERS: ADMIT Neurological Surgery; ATTEND Neurological Surgery
PROC: 0SG00AJ Fusion of Lumbar Vertebral Joint with Interbody Fusion Device, Posterior Approach, Anterior Column, Open Approach (ICD-10-PCS; principal; 2017-08-15 07:45)
PROC: 8E0WXBZ Computer Assisted Procedure of Trunk Region (ICD-10-PCS; principal; 2017-08-15 07:45)
PROC: 4A1004G Monitoring of Central Nervous Electrical Activity, Intraoperative, Open Approach (ICD-10-PCS; principal; 2017-08-15 07:45)
PROC: 00NY0ZZ Release Lumbar Spinal Cord, Open Approach (ICD-10-PCS; principal; 2017-08-15 07:45)
DX: M43.16 Spondylolisthesis, lumbar region (principal); M48.062 Spinal stenosis, lumbar region with neurogenic claudication; M54.16 Radiculopathy, lumbar region; I10 Essential (primary) hypertension; G47.33 Obstructive sleep apnea (adult) (pediatric); K21.9 Gastro-esophageal reflux disease without esophagitis; F43.10 Post-traumatic stress disorder, unspecified; F32.9 Major depressive disorder, single episode, unspecified
CPT/HCPCS: 97116-GP; 97161-GP; 97165-GO; 97530-GO; 97530-GP; 97535-GO; C1713; C1762; J0171; J0690; J1100; J1650; J2250; J2274; J2704; J3010; J7060

== ENCOUNTER 2018-02-20 12:08 | Emergency (ER) | payer OTHER, MEDICARE ==
--- NOTE | 2018-02-20 14:21 | EDPHY ---
HPI/HX/ROS/PE/MDM Narrative: CLINICAL IMPRESSION: Major depression with suicidal ideations ASSESSMENT/PLAN: 67-year-old female presents to the emergency department with severe depression, PTSD, and anxiety surrounding familial stress and separation from her of 47 years. Patient has no local support system, no friends, and is estranged from her children. Please see HPI for full details. Patient admits to be to being suicidal without a plan. Denies homicidal ideation. Does not feel her depression is well controlled on Zoloft. She does see a counselor regularly but does not feel this is helping her symptoms. No prior history of mental health hospitalization or suicide attempt. Patient was medically cleared and met with TLC provider Lata. It is felt she is displaying any axis 2 degrees criteria and Lata will plan to talk to inpatient psych provider to determine if admission is appropriate. We are concerned that this patient is expressing suicidal ideation and I would recommend inpatient placement at this time. Awaiting Psychiatry recommendation. After discussion with our psychiatrist, TLC provider and I have agreed that patient meets hold criteria. Unfortunately there are no beds available at the [place] inpatient location and a bed search is commencing. Patient is aware that she is on a hold. Admission lab work is ordered. Case signed out to Dr. Lopes at 5:00 p.m. Patient is in stable condition at time of sign-out DIFFERENTIAL DX: Differential includes but not limited to major depressive episode, SI/HI, PTSD, acute stress reaction, intoxication, infectious etiology, electrolyte imbalance , metabolic disturbance. ED PROCEDURES: See lab and/or imaging results below ED COURSE: TLC eval pending at 2:15pm 3:10 p.m.: Patient has been assessed by TLC provider Lata. It is felt she is many axis to criteria. We are concerned about her suicidal ideations. Lata will discuss with inpatient psych service for admission. Patient not currently on hold and lab work pending. 4:10 p.m.: TLC provider was able to speak with inpatient psych provider. It was agreed that she meets inpatient criteria and and M1 hold was written and signed by myself. Admission labs ordered. Patient is stable. Case will be signed out to Dr. Lopes at 5:00 p.m.. CHIEF COMPLAINT: MH evezequiel HPI: This is a 67 yo female with PMH of CHF, PTSD, severe ROSALIA, back pain, panic attacks and depression who presents to the ER for a mental health evaluation. Patient reports she has been from her of 47 years for the last 7 years. She says she only had 5 more years left of money to live on and that she has nothing to live for anymore. She has been working with a PI and pyroglazer for the past several years to determine if her is "hiding large amounts of money and making alias names/jobs so she cannot find him". She reports she has not gone through a formal divorce. She says she has two children she is estranged from. She states her has land and houses that are shared with their children but she was not given anything. She states the stress over her marriage and years of PTSD have left her with congestive heart failure and other medical problems. She is working with a local counselor and has been taking Zoloft but does not feel it is doing anything. She has taken antidepressants in the past as well. She states she has no friends and no support system home that she has nothing left to live for after her income runs out in 5 years. She admits that she is feeling suicidal over all of this but has no plan for suicide. She denies homicidal ideation. She denies alcohol but states"I should just take a bunch of it"and also denies illicit drugs. Her only physical complaint is a possible UTI. She has had some dysuria since the weekend. She has never been to a hospital for mental health illness before and has never been admitted to a hospital. PAST MEDICAL HISTORY: CHF, PTSD, severe ROSALIA, chronic back pain, panic attacks, depression See nurse/triage notes for additional history if applicable Pertinent Past Surgical History: None reported Family History: No reported family history of mental health illness Social History: Nonsmoker, lives alone, from her REVIEW OF SYSTEMS: All other systems negative Constitutional: No fever, no chills, appetite change. Eyes: No discharge, vision change ENT: No sore throat, congestion, ear pain. Cardiovascular: No chest pain, no palpitations. Respiratory: No cough, no shortness of breath. Gastrointestinal: No abdominal pain, no vomiting, diarrhea. Genitourinary: Positive for dysuria, no flank pain or pelvic pain Musculoskeletal: No back pain, joint swelling, joint pain, myalgias. Skin: No rashes, color change. Neurological: No headache, dizziness, weakness. PHYSICAL EXAM: General Appearance: Alert, oriented, appropriate, cooperative, NAD, well hydrated, non-toxic appearing, VSS, no hypoxia, tearful. HEENT: Oropharynx clear is no erythema or exudates, no tonsillar hypertrophy or asymmetry. Dentition without abnormality. Eyes: PERRLA, no acute vision change, nystagmus, swelling, discharge, pain or photosensitivity. Conjunctiva pink, no pallor or injection Neck: Supple, nontender, no lymphadenopathy, no midline pain, FROM, no meningismus. Respiratory: There are no retractions, lungs are clear to auscultation. Cardiac: Regular rate and rhythm, no murmurs or gallops. Gastrointestinal: Abdomen is soft, nontender, bowel sounds normal, no masses/ hernia, no rigidity, guarding or focal peritoneal findings. Neurological: Alert and oriented x 3, CN 2-12 grossly intact, normal gait no ataxia, DTR's intact, normal sensation and strength Skin: Warm, dry, no rashes, no nodules on palpation. Musculoskeletal: Extremities are symmetrical, full range of motion, no tenderness, deformity, swelling, or erythema. Psychiatric: Patient is oriented X 3, there is no agitation, admits to feeling suicidal without a plan. Denies homicidal ideation. MEDICAL DECISION MAKING: Patient was seen independently. Secondary supervising physician at time of evaluation was Dr. Whitaker. Diagnosis: Major depression with suicidal ideation. New, requires workup Summary: See Assessment and Plan for summary of ED visit Clinical lab tests: ordered / reviewed. Discussed patient with another provider: [facility] provider Dr. Marianne Guido Patient Progress: Stable. (Isaías Lerma) ED Course: Accepted to [facility] by Dr. Everett. EMTALA completed. (Yamileth Whitaker) - Data Points Laboratory Results: Laboratory Results 02/20/18 16:40 18 16:40 02/20/18 02/20/18 02/20/18 16:40 16:40 13:57 WBC 6.81 10^3/uL 10^3/uL (3.80-9.50) RBC 4.55 10^6/uL 10^6/uL (4.18-5.33) Hgb 13.5 g/dL g/dL (12.6-16.3) Hct 39.2 % % (38.0-47.0) MCV 86.2 fL fL (81.5-99.8) MCH 29.7 pg pg (27.9-34.1) MCHC 34.4 g/dL g/dL (32.4-36.7) RDW 12.5 % % (11.5-15.2) Plt Count 251 10^3/uL 10^3/uL (150-400) MPV 9.2 fL fL (8.7-11.7) Neut % (Auto) 62.3 % % (39.3-74.2) Lymph % (Auto) 26.4 % % (15.0-45.0) [place] % (Auto) 8.8 % % (4.5-13.0) Eos % (Auto) 1.5 % % (0.6-7.6) Baso % (Auto) 0.7 % % (0.3-1.7) Nucleat RBC Rel Count 0.0 % % (0.0-0.2) Absolute Neuts (auto) 4.24 10^3/uL 10^3/uL (1.70-6.50) Absolute Lymphs (auto) 1.80 10^3/uL 10^3/uL (1.00-3.00) Absolute Monos (auto) 0.60 10^3/uL 10^3/uL (0.30-0.80) Absolute Eos (auto) 0.10 10^3/uL 10^3/uL (0.03-0.40) Absolute Basos (auto) 0.05 10^3/uL 10^3/uL (0.02-0.10) Absolute Nucleated RBC 0.00 10^3/uL 10^3/uL (0-0.01) Immature Gran % 0.3 % % (0.0-1.1) Immature Gran # 0.02 10^3/uL 10^3/uL (0.00-0.10) Sodium 139 mEq/L mEq/L (135-145) Potassium 3.9 mEq/L mEq/L (3.5-5.2) Chloride 106 mEq/L mEq/L (97-110) Carbon Dioxide 25 mEq/l mEq/l (22-31) Anion Gap 8 mEq/L mEq/L (6-14) BUN 23 mg/dL mg/dL (7-23) Creatinine 0.9 mg/dL mg/dL (0.6-1.0) Estimated GFR > 60 Glucose 106 mg/dL H mg/dL (70-100) Calcium 9.6 mg/dL mg/dL (8.5-10.4) Urine Color YELLOW Urine Appearance HAZY Urine pH 6.0 (5.0-7.5) Ur Specific [place] 1.016 (1.002-1.030) Urine Protein NEGATIVE (NEGATIVE) Urine Ketones NEGATIVE (NEGATIVE) Urine Blood NEGATIVE (NEGATIVE) Urine Nitrate NEGATIVE (NEGATIVE) Urine Bilirubin NEGATIVE (NEGATIVE) Urine Urobilinogen NEGATIVE EU EU (0.2-1.0) Ur Leukocyte Esterase 1+ H (NEGATIVE) Urine RBC 1-3 /hpf /hpf (0-3) Urine WBC 50-182 /hpf H /hpf (0-3) Ur Epithelial Cells TRACE /lpf /lpf (NONE-1+) Urine Mucus TRACE /lpf /lpf (NONE-1+) Urine Glucose NEGATIVE (NEGATIVE) Salicylates < 1.0 mg/dL L mg/dL (2.0-20.0) Urine Opiates Screen NEGATIVE (NEGATIVE) Acetaminophen < 10 mcg/mL L mcg/mL (10-30) Urine Barbiturates NEGATIVE (NEGATIVE) Ur Phencyclidine Scrn NEGATIVE (NEGATIVE) Ur Amphetamine Screen NEGATIVE (NEGATIVE) U Benzodiazepines Scrn NON-NEGATIVE H (NEGATIVE) Urine Cocaine Screen NEGATIVE (NEGATIVE) U Marijuana (THC) Screen NEGATIVE (NEGATIVE) General Time Seen by Provider: 02/20/18 12:44 Initial Vital Signs: Initial Vital Signs Temperature (C) 36.7 C 02/20/18 12:25 Heart Rate 79 02/20/18 12:25 Respiratory Rate 16 02/20/18 12:25 Blood Pressure 109/74 02/20/18 12:25 O2 Sat (%) 95 02/20/18 12:25 O2 Delivery Mode Room Air Allergies/Adverse Reactions: No Allergies [NKA] Allergy (Verified 02/20/18 12:23) Home Medications: Medication Instructions Recorded Simvastatin [Zocor] 20 mg PO HS 11/20/09 Eszopiclone [Lunesta] 3 mg PO HS 01/21/17 Metoprolol Succinate Xr [Toprol Xl 25 mg PO DAILY 01/21/17 25 mg (*)] Multivitamins [Multivitamin (*)] 1 each PO DAILY 01/21/17 Ascorbic Acid [Vitamin C 500 mg 500 mg PO DAILY 07/19/17 (*)] [place]-3 Fatty Acids [Fish Oil 1000 1,000 mg PO DAILY 07/19/17 mg (*)] Omeprazole 40 mg PO DAILY 07/19/17 Sertraline HCl [Zoloft 100mg (*)] 200 mg PO DAILY 07/19/17 Ondansetron Odt [Zofran Odt 4 mg 4 - 8 mg PO Q6HRS PRN tab 08/19/17 (*)] ALPRAZolam [Xanax 1 MG (*)] 1 mg PO DAILY PRN tab 08/20/17 Furosemide 02/20/18 Departure - Departure Disposition: Other Psych, Not [place] Clinical Impression: Suicidal ideation Condition: Fair Referrals: SHAR CALLE MD [Primary Care Provider] - As per Instructions
[2018-02-20 16:54] LABS: PLATELET COUNT 251 10^3/uL (150-400)
--- NOTE | 2018-02-20 18:08 | ASMTTLCEVL ---
TLC Evaluation - Basic Information Evaluation Start Date and 02/20/2018 02:15 PM Time Hospital Status Answers: M1 Hold 72-hr M1 Hold Start Date 02/20/2018 12:08 PM and Time Patient statement Notes: Im going through a divorce. Debra been 47 years. Hes playing games, hiding where he works so he doesnt have to pay me money. Narrative Notes: Pt is a 67 year old female who self-presented to [facility] with severe depression, PTSD and anxiety surrounding familial stress and separation from her of 47 years. Pt has been for 7 years and stated he willing to give $3900 a month. Pt stated, Why would I wanna live if I only have $130,000 left to live? That gives me 4 years left to live. Would you wanna live? Pt stated she is having suicidal thoughts but does not have a plan but stated, I can come up with something. Pt states she has hired a manager private to look into her husbands finances because she believes he is hiding large amounts of money and making alias names/jobs so she cannot find him. Pt also stated, Hes hacked into my phone too so he can look in my emails and see what Im up to. Pt stated her was having an affair on her, dealing with escort services. When asked about her suicidal ideation, pt stated she has had SI, all the time, theres always been something going on in my life. Debra only had my dogs. Pt states, my social security money is going to the manager private and paying my bills. Pt states she has many health issues and does not know how she will live without adequate money. Diagnosis History Notes: Pt has a hx of depression and anxiety. Prior suicide attempts Notes: Pt denied any priors suicide attempts. Prior hospitalizations Notes: Pt denied any prior hospitalizations. Treatment Responses Notes: N/A History of violence Notes: Pt denied any hx of violence. Pt denied HI. Therapist: Keya Jones Psychiatrist: Renee Garcias MD Medications (name, dosage, route, freq uency) Notes: Zoloft 200mg; simvastin 20mg; lunesta 3mg po; Toprol 25mg;omeprazole 40mg; Xanax 1mg; furosemide. Allergies/Reaction Notes: NKA Sleep Notes: Pt stated she sleeps 4 hours a night. Appetite Notes: Pt stated, I lost a bunch of weight, Pt states she hasnt been that hungry. Medical/Surgical history Notes: Pt reports congestive heart failure, spinal stenosis, slipped disk, dropped foot, sleep apnea. Substance use history (frequency, intensity, his tory, duration) Notes: Pt denied any substance abuse hx or etoh use, but told the PA Marquise, I should just take a bunch of it. Pts utox was positive for benzodiazepines but pt has a prescription for Xanax. Bal was.0. Family composition Notes: Pt stated she has 2 siblings, 1 brother and 1 sister but stated she doesnt speak to them at all and stated, They are both into material things. Need for family Answers: No participation in patient's care Family psychiatric/substance abuse history Notes: Pt stated she has a hx of alcoholism, depression and anxiety in her family. Developmental history Notes: When asked about her childhood development pt stated, Lonely, just like I am now. Like, when I ask for more time. He wont give it to me. Pt did not answer the question about her childhood hx. Marital status/children Notes: Pt stated she was for 47 years but has been 7 years. Pt has two children, 1 daughter 35 years old and a 43 year old son. Pt stated she has not spoken to her daughter for 8 years. Pt stated she has a very dysfunctional family. When asked if she has a relationship with her son and she said, Not really. Living situation Notes: Pt lives in [place], [place] Sexual history/orientation Notes: Pt identifies as heterosexual. Peer support/family strengths Notes: Pt stated I have 1 friend but she is moving to [place]. Education level/history Notes: Pt stated she has a H.S diploma. Work history Notes: Pt stated she has never worked. Notes: None reported. Legal Notes: Pt denied any legal problems. Religion/Spiritual Notes: None that would interfere with tx. Leisure Notes: Pt stated she enjoys movies, shopping and interior decorating. Collateral Notes: Therapist-Keya Jones Spoke with Keya, pt's therapist. Pt called her from the [employer] department. Keya stated pt has a hx of Borderline traits and has had suicidal thoughts for a long time but never had a plan. Keya stated she believes pt would not act on it due "not wanting to give in to her ex-.and letting him get all the money." She states that pt has had a lot of stress with her divorce and having a stressful relationship with her audioprosthologist. Patient's strengths Answers: Intelligent (Please select at least TWO strengths): Willingness [facility] Evaluation - Mental Status Exam Appearance: Answers: Appropriate Eye Contact: Answers: Good/Direct Mood: Answers: Depressed Irritable Affect: Answers: Fearful Irritable Sad Behavior: Answers: Cooperative Uncooperative Resistive to Care Speech: Answers: Relevant Logical Clear Dramatic Thought Process: Answers: Organized Oriented Alert Intact Insight: Answers: Poor Judgement: Answers: Fair Depression Answers: Diminished Interest Signs/Symptoms: Flat Affect Hopelessness Worthlessness Anxiety Signs/Symptoms Answers: Generalized Anxiety Panic Attacks Hallucinations: Answers: None Pt reported to have Answers: No suicidal/self-injuring ideation/behavior? Pt reported to be making Answers: Yes suicidal/self-injuring threats? Pt reported to have Answers: No aggression/assault ideation/behavior? Pt reported to be making Answers: No aggression/assault threats? Pt exhibits inability to Answers: No care for self/grave disability? Ideation/behavior is Answers: Yes chronic? Patient has a specific Answers: No plan? Ideation has Answers: No delusional/hallucinatory content? History of Answers: Yes suicidal/self-injuring ideation, behavior, or threats? History of Answers: No aggressive/assaultive ideation, behavior, or threats? History of serious Answers: No physical harm to self/others while in treatment setting? [facility] Evaluation - Suicide/Homicide Risk Suicide Risk Factors: Answers: < 20 or > 40 Years of Age Anxiety/Panic, Severe Cluster "B" D/O or Traits Lack of Social Support Unstable Living Situation Homicide/violence risk Answers: None factors: Current Suicidal Answers: Yes Ideation? Current Suicide Ideation Pt stated she has always had SI and doesn't have a Frequency: plan but "can come up with one." Current Suicidal Ideation Answers: Yes in the Past 48 Hours? Current Suicidal Ideation Answers: Yes in the Past Month? Current Suicidal Answers: No Ideation, Worst Ever? Suicide Internal Answers: Absence of Psychosis Protective Factors: Suicide External Answers: Positive Therapeutic Protective Factors: Relationships Responsibility to Children Ranking of patient's Answers: Moderate suicidal risk: Ranking of patient's Answers: Low homicidal risk: [facility] Evaluation - Wrap-up BDI Total Score: 40 BDI Question #2 Score: 1 BDI Question #9 Score: 1 BSS Total Score: 15 AXIS I Diagnosis (include DSM-V and ICD-10 codes), must also be entered in [employer], which is the source of truth. Notes: Major Depressive Disorder, single episode, severe 296.23 (F32.2) Cluster B Traits In consultation with [facility] ED physician, Shalom Elam MD and on-call psychiatrist, René Méndez MD, both concurred that pt appears to meet 27-65 criteria requiring psychiatric hospitalization as pt appears to be at risk of harm to self due to a mental illness condition. Evaluation End Date and 02/20/2018 06:00 PM Time (HH:FRAN): Date Signed: 02/20/2018 06:07 PM Electronically Signed By:Araceli Haney
--- NOTE | 2018-02-20 19:46 | ASMTTCLDSP ---
TLC Discharge Disposition Disposition: Answers: Transfer Discharge Concerns/Recommendations: Notes: In consultation with [facility] ED physician, Shalom Elam MD and on-call psychiatrist, René Méndez MD, both concurred that pt appears to meet 27-65 criteria requiring psychiatric hospitalization as pt appears to be at risk of harm to self due to a mental illness condition. For Transfers, Accepting [facility] [place] Facility: For Transfers, Accepting Dilip Everett MD Psychiatrist: For Transfers, Reason No beds at [facility] Patient is Being Transferred: Date Signed: 02/20/2018 07:46 PM Electronically Signed By:Araceli Haney
[2018-02-20] MEDS ORDERED: METOPROLOL SUCCINATE XR 25 MG TAB PO ONE (20:49)
[2018-02-20] MEDS ORDERED: ALPRAZolam 0.25 MG TAB PO ONE (20:49)
[2018-02-20] MEDS ORDERED: ATORVASTATIN CALCIUM 10 MG TAB PO ONE (20:50)
--- NOTE | 2018-02-20 21:01 | CPEKG ---
Test Reason : OPEN Blood Pressure : / mmHG Vent. Rate : 070 BPM Atrial Rate : 070 BPM P-R Int : 163 ms QRS Dur : 084 ms QT Int : 394 ms P-R-T Axes : 050 027 042 degrees QTc Int : 426 ms Sinus rhythm Probable left atrial enlargement Probable anteroseptal infarct, old Confirmed by Yamileth Whitaker ([id number]) on 02/20/2018 9:00:41 PM Referred By: Confirmed By:Yamileth Whitaker
[2018-02-20 21:32] VITALS: BP 126/78
== END 2018-02-20 21:15 ==
DX: R45.851 Suicidal ideations (principal); F32.9 Major depressive disorder, single episode, unspecified; F43.10 Post-traumatic stress disorder, unspecified; F41.9 Anxiety disorder, unspecified; Z63.79 Other stressful life events affecting family and household; G47.33 Obstructive sleep apnea (adult) (pediatric); I50.9 Heart failure, unspecified; G89.29 Other chronic pain
CPT/HCPCS: 80305; G0480